=== PATIENT | male | born 1985 | race Caucasian/White ===

== ENCOUNTER 2019-01-14 19:16 | Emergency (ER) | payer OTHER, MEDICAID, SELFPAY ==
[2019-01-14 19:30] VITALS: BP 152/92; PULSE 111; RESP 14; TEMP 37; O2SAT 97
--- NOTE | 2019-01-14 19:30 | ED.SYNCOPE ---
HPI - Syncope General Chief Complaint: Abdominal Pain Stated Complaint: Syncope/ Abd Pain Time Seen by Provider: 01/14/19 19:28 Source: patient Mode of arrival: EMS Limitations: no limitations History of Present Illness HPI narrative: Patient is a 33-year-old male brought in by EMS after he had what appeared to be a syncopal episode at home. Upon my evaluation patient reported that he had no symptoms. He stated that he has had issue with constipation in the past. He states that he felt like he is currently constipated. States that his last bowel movement was a couple days ago. He states that prior to that he had some dark brown stool. He denied that there was any blood in it denies any black colored stool. He stated that earlier today he started having some abdominal pain. He was not straining on the toilet when this happened. He stated that he suddenly became very lightheaded and went into the bathroom where his was where apparently he had a syncopal event. There was no loss of bowel or bladder. The stated that he did hit his head however the patient was unsure about this. He denies any neck pain or headache. he stated that prior to the event other than the abdominal pain he had no other symptoms. There was no reported seizure-like activity. No reported postictal period. Related Data Allergies Allergy/AdvReac Type Severity Reaction Status Date / Time haloperidol Allergy Verified 01/14/19 19:38 Review of Systems Constitutional Denies fever(s), Denies frequent falls and Denies headache(s) ENT Ears, Nose, Mouth, and Throat: Denies headache(s) and Denies disequilibrium Cardiovascular Denies chest pain, Reports syncope and Denies dyspnea Respiratory Denies cough and Denies dyspnea Gastrointestinal Gastrointestinal: Reports abdominal pain, Reports constipation, Denies nausea and Denies vomiting Genitourinary Denies dysuria Musculoskeletal Denies myalgias and Denies arthralgias Integumentary/Breasts Denies rash Neurologic Denies confusion, Reports syncope, Denies frequent falls, Denies headache(s) and Denies disequilibrium Psychiatric Denies confusion Hematologic/Lymphatic Denies easy bleeding and Denies easy bruising Allergic/Immunologic Denies urticaria [facility] Medical History Constipation (Acute) Social History Smoking Status: Former smoker Social History Smoking Status: Former smoker Exam Initial Vital Signs Initial Vital Signs: Vital Signs Temperature 98.6 F 01/14/19 19:30 Pulse Rate 111 H 01/14/19 19:30 Respiratory Rate 14 01/14/19 19:30 Blood Pressure 152/92 H 01/14/19 19:30 Pulse Oximetry 97 01/14/19 19:30 Const General: cooperative, healthy appearing, comfortable, well developed, well groomed and No acute distress Orientation: alert, awake and oriented x3 HENMT Head: normal to inspection, normocephalic, atraumatic and No abrasion Chest Chest: No tenderness Resp Effort & Inspection: normal respiratory effort Auscultation: clear to auscultation bilaterally Cardio Rate: regular rate Rhythm: regular rhythm Pulses: radial pulses present GI Inspection: non-distended Palpation: soft, No firm and No tender Back/Spine/Pelvis Cervical Spine: No cervical spinal tenderness and No step off deformity Thoracic/Lumbar Spine: No thoracic spinal tenderness and No lumbar spinal tenderness Skin Lesions: no lesions Rashes: no rashes Neuro General: alert, awake and oriented x3 Cognition: normal cognition Speech: speech normal Gait: normal gait Motor: muscle tone normal throughout Sensory Exam: no sensory deficits noted Extrem General: normal to inspection and capillary refill normal Psych Appearance: grossly normal and well kempt Scores GCS Cassy coma scale eye opening: Spontaneous Cassy coma scale verbal response: Orientated Cassy coma scale motor response: Obey commands [place] coma scale total score: 15 Nexus Score for C-Spine Focal Neurologic deficit present: No Midline spinal tenderness present: No Altered level of conciousness present: No Intoxication present: No Distracting Injury Present: No Nexus Criteria for C-spine: 0 Course Orders Ordered: ED Orders 01/14/19 19:25 EKG-12 Lead Stat 01/14/19 20:00 Venous Blood Gas Stat 01/14/19 20:09 Complete Blood Count AUTO DIFF Stat Comprehensive Metabolic Panel Stat Ketones (Beta-Hydroxybutyrate) Stat Lactate (Lactic Acid) Stat Magnesium Stat Phosphorous Stat Procalcitonin Stat Prothrombin Time INR Stat Thyroid Stimulating Hormone Stat Troponin & CK Cardiac Panel Stat Discontinued Medications Sodium Chloride (Normal Saline 0.9%) 1,000 mls @ 1,000 mls/hr IV BOLUS ONE Stop: 01/14/19 20:23 Last Infusion: 01/14/19 22:22 Dose: 0 mls/hr Admin: 01/14/19 20:17 Dose: 1,000 mls/hr Vital Signs - 8 hr 01/14/19 20:36 01/14/19 21:11 01/14/19 22:00 Pulse Rate 97 H 93 H 85 Respiratory Rate 13 18 18 Blood Pressure [Left Arm] 130/82 124/63 96/59 L Pulse Oximetry 100 99 98 MDM - Syncope Lab Data Attestation: I reviewed the patient's lab results. Result diagrams: 01/14/19 20:09 01/14/19 20:09 Lab Results 01/14/19 01/14/19 01/14/19 Range/Units 20:00 20:09 20:09 WBC 12.3 H (4.5-11.0) X10^3/uL RBC 4.60 (4.5-5.9) X10^6/uL Hgb 14.0 (13.5-17.5) g/dL Hct 42.6 (41-53) % MCV 92.6 (80-100) fL MCH 30.4 (26-34) PG MCHC 32.8 (30-36) % RDW 12.9 (11.6-14.8) % Plt Count 255 (150-400) X10^3/uL Neut % (Auto) 77.3 H (50-75) % Lymph % (Auto) 15.7 L (25-40) % [place] % (Auto) 6.7 (3-14) % Eos % (Auto) 0.1 L (2-4) % Baso % (Auto) 0.2 (0-2) % Neut # (Auto) 9500 H (1902-0696) /uL Lymph # (Auto) 1900 (9765-7632) /uL [place] # (Auto) 800 (0-900) /uL Eos # (Auto) 0 (0-450) /uL Baso # (Auto) 0 (0-100) /uL PT (10.1-12.7) SECONDS INR (0.9-1.3) VBG pH 7.42 (7.33-7.43) VBG pCO2 35.8 L (45-50) mmHg VBG pO2 57 H (35-45) mmHg VBG HCO3 23 (23-28) mmol/L VBG Total CO2 24 (24-29) mmol/L VBG O2 Saturation 90 H (70-75) % VBG Base Excess -1.0 L (0-4) mmol/L Sodium 142 (137-145) mmol/L Potassium 3.7 (3.4-5.1) mmol/L Chloride 106 (98-107) mmol/L Carbon Dioxide 24 (22-32) mmol/L BUN 13 (9-20) mg/dL Creatinine 0.80 (0.66-1.25) mg/dL Estimated GFR > 60.0 (>60) mL/min BUN/Creatinine Ratio 16.3 (6-22) Glucose 123 H (70-100) mg/dL Lactate (0.7-2.1) mmol/L Calcium 9.6 (8.4-10.2) mg/dL Phosphorus (2.5-4.5) mg/dL Magnesium (1.6-2.3) mg/dL Total Bilirubin 0.9 (0.2-1.3) mg/dL AST 29 (17-59) IU/L ALT 31 (21-72) IU/L Alkaline Phosphatase 71 (38-126) U/L Total Creatine Kinase 193 H (55-170) U/L CK-MB (CK-2) 2.05 (<2.37) ng/mL CK-MB (CK-2) Rel Index 1.1 L (1.5-5.0) % Troponin I < 0.012 (0.01-0.034) ng/mL Total Protein 7.9 (6.3-8.2) g/dL Albumin 4.7 (3.5-5.0) g/dL Globulin 3.2 (1.7-4.1) g/dL Albumin/Globulin Ratio 1.5 (1.0-2.8) Procalcitonin (<0.5) ng/mL TSH (0.47-4.68) uIU/mL Ketones (<0.27) mmol/L 01/14/19 01/14/19 01/14/19 Range/Units 20:09 20:09 20:09 WBC (4.5-11.0) X10^3/uL RBC (4.5-5.9) X10^6/uL Hgb (13.5-17.5) g/dL Hct (41-53) % MCV (80-100) fL MCH (26-34) PG MCHC (30-36) % RDW (11.6-14.8) % Plt Count (150-400) X10^3/uL Neut % (Auto) (50-75) % Lymph % (Auto) (25-40) % [place] % (Auto) (3-14) % Eos % (Auto) (2-4) % Baso % (Auto) (0-2) % Neut # (Auto) (3288-9485) /uL Lymph # (Auto) (6936-3233) /uL [place] # (Auto) (0-900) /uL Eos # (Auto) (0-450) /uL Baso # (Auto) (0-100) /uL PT 12.8 H (10.1-12.7) SECONDS INR 1.1 (0.9-1.3) VBG pH (7.33-7.43) VBG pCO2 (45-50) mmHg VBG pO2 (35-45) mmHg VBG HCO3 (23-28) mmol/L VBG Total CO2 (24-29) mmol/L VBG O2 Saturation (70-75) % VBG Base Excess (0-4) mmol/L Sodium (137-145) mmol/L Potassium (3.4-5.1) mmol/L Chloride (98-107) mmol/L Carbon Dioxide (22-32) mmol/L BUN (9-20) mg/dL Creatinine (0.66-1.25) mg/dL Estimated GFR (>60) mL/min BUN/Creatinine Ratio (6-22) Glucose (70-100) mg/dL Lactate 0.8 (0.7-2.1) mmol/L Calcium (8.4-10.2) mg/dL Phosphorus (2.5-4.5) mg/dL Magnesium (1.6-2.3) mg/dL Total Bilirubin (0.2-1.3) mg/dL AST (17-59) IU/L ALT (21-72) IU/L Alkaline Phosphatase (38-126) U/L Total Creatine Kinase (55-170) U/L CK-MB (CK-2) (<2.37) ng/mL CK-MB (CK-2) Rel Index (1.5-5.0) % Troponin I (0.01-0.034) ng/mL Total Protein (6.3-8.2) g/dL Albumin (3.5-5.0) g/dL Globulin (1.7-4.1) g/dL Albumin/Globulin Ratio (1.0-2.8) Procalcitonin < 0.05 (<0.5) ng/mL TSH (0.47-4.68) uIU/mL Ketones (<0.27) mmol/L 01/14/19 01/14/19 Range/Units 20:09 20:09 WBC (4.5-11.0) X10^3/uL RBC (4.5-5.9) X10^6/uL Hgb (13.5-17.5) g/dL Hct (41-53) % MCV (80-100) fL MCH (26-34) PG MCHC (30-36) % RDW (11.6-14.8) % Plt Count (150-400) X10^3/uL Neut % (Auto) (50-75) % Lymph % (Auto) (25-40) % [place] % (Auto) (3-14) % Eos % (Auto) (2-4) % Baso % (Auto) (0-2) % Neut # (Auto) (7821-9401) /uL Lymph # (Auto) (2711-5351) /uL [place] # (Auto) (0-900) /uL Eos # (Auto) (0-450) /uL Baso # (Auto) (0-100) /uL PT (10.1-12.7) SECONDS INR (0.9-1.3) VBG pH (7.33-7.43) VBG pCO2 (45-50) mmHg VBG pO2 (35-45) mmHg VBG HCO3 (23-28) mmol/L VBG Total CO2 (24-29) mmol/L VBG O2 Saturation (70-75) % VBG Base Excess (0-4) mmol/L Sodium (137-145) mmol/L Potassium (3.4-5.1) mmol/L Chloride (98-107) mmol/L Carbon Dioxide (22-32) mmol/L BUN (9-20) mg/dL Creatinine (0.66-1.25) mg/dL Estimated GFR (>60) mL/min BUN/Creatinine Ratio (6-22) Glucose (70-100) mg/dL Lactate (0.7-2.1) mmol/L Calcium (8.4-10.2) mg/dL Phosphorus 2.7 (2.5-4.5) mg/dL Magnesium 1.8 (1.6-2.3) mg/dL Total Bilirubin (0.2-1.3) mg/dL AST (17-59) IU/L ALT (21-72) IU/L Alkaline Phosphatase (38-126) U/L Total Creatine Kinase (55-170) U/L CK-MB (CK-2) (<2.37) ng/mL CK-MB (CK-2) Rel Index (1.5-5.0) % Troponin I (0.01-0.034) ng/mL Total Protein (6.3-8.2) g/dL Albumin (3.5-5.0) g/dL Globulin (1.7-4.1) g/dL Albumin/Globulin Ratio (1.0-2.8) Procalcitonin (<0.5) ng/mL TSH 1.14 (0.47-4.68) uIU/mL Ketones 0.08 (<0.27) mmol/L Urine Dip Bedside Urine Glucose Negative Bedside Urine Bilirubin - Negative Bedside Urine Ketone - Negative Urine Specific [place] 1.020 Bedside Urine Occult Blood - Negative Bedside Urine pH 6.0 Bedside Urine Protein - Negative Bedside Urine Urobilinogen - Negative Bedside Urine Nitrite - Negative Bedside Urine Leukocytes - Negative Esterase ECG Data Attestation: I personally reviewed and interpreted this ECG as follows: Prior ECG tracings: not available for review Interpretation: Sinus rhythm Ventricular rate of 93 Normal axis Normal QRS Normal QTC No ST T wave changes MDM Narrative Medical decision making narrative: On arrival patient was tachycardic 10/18/2010 however this resolved. He was no longer tachycardic on his EKG. He was not having any chest pain or shortness of breath. I have low suspicion for PE. There was no indication that this was seizure-like activity. There was some report that the patient hit his head when he fell however he has no external signs of any trauma. He is alert oriented x3. His cervical spine was cleared by nexus criteria. Will hold on head CT or cervical spine CT for now. Upon my evaluation the patient had no symptoms. Had no abdominal pain. was initially reported that his blood glucose by EMS was 250. He has never had any diagnosis of diabetes. He is not in DKA. PH is 7.4 on his VBG. His glucose was 123 on his chemistries here in the emergency department. Upon further questioning of the patient and his it does appear that this was a vasovagal reaction most likely to his abdominal pain. I have low concern for AAA. Given his lack of abdominal pain will hold on a CT scan. He has benign abdominal exam. Low suspicion for obstruction. Patient was asking to go home. We did discuss the use of laxatives and stool softeners. He was given return precautions. He is given a phone number to call to help with stab wishing a primary provider. Both he and his expressed understanding and agreement plan. Discharge Plan Departure Patient Disposition: Home Clinical Impression: Abdominal pain Qualifiers: Abdominal location: generalized Qualified Code(s): R10.84 - Generalized abdominal pain Syncope Qualifiers: Syncope type: unspecified Qualified Code(s): R55 - Syncope and collapse Discharge Date/Time: 01/14/19 22:19 Interventions: ED Discharge Assessment Last Done: 01/14/19 22:22 Instructions: Constipation (Alternative Therapy), Constipation Activity Restrictions/Additional Instructions: Recommend that you do make contact with the primary care provider for follow-up. You can take laxatives for any constipation issues. Return to the emergency department for any new or worsening symptoms. you can call 360 help with stab wishing a primary provider
[2019-01-14] MEDS: SODIUM CHLORIDE 0.9% 1,000 ML 1000 ML IV (20:17)
[2019-01-14 20:19] LABS: Add Manual Diff / Slide Review NO; Basophils Absolute Auto 0 /uL (0-100); Basophils Percent Auto 0.2 % (0-2); Eosinophils Absolute Auto 0 /uL (0-450); Eosinophils Percent Auto 0.1 % (2-4); Hematocrit 42.6 % (41-53); Lymphocytes Absolute Auto 1900 /uL (1100-4500); Lymphocytes Percent Auto 15.7 % (25-40); Mean Corpuscular HGB Conc 32.8 % (30-36); Mean Corpuscular Hemoglobin 30.4 PG (26-34); Mean Corpuscular Volume 92.6 fL (80-100); Monocytes Absolute Auto 800 /uL (0-900); Monocytes Percent Auto 6.7 % (3-14); Neutrophils Absolute Auto 9500 /uL (1500-7000); Neutrophils Percent Auto 77.3 % (50-75); Platelet Count 255 X10^3/uL (150-400); Red Cell Distribution Width 12.9 % (11.6-14.8); White Blood Cell Count 12.3 X10^3/uL (4.5-11.0)
[2019-01-14 20:19] LABS: HCO3 VBG 23 mmol/L (23-28); Oxygen Saturation VBG 90 % (70-75); PCO2 VBG 35.8 mmHg (45-50); PO2 VBG 57 mmHg (35-45); Total CO2 VBG 24 mmol/L (24-29); pH VBG 7.42 (7.33-7.43)
[2019-01-14 20:26] LABS: INR 1.1 (0.9-1.3); Prothrombin Time 12.8 SECONDS (10.1-12.7)
[2019-01-14 20:33] LABS: Alanine Aminotransferase 31 IU/L (21-72); Albumin 4.7 g/dL (3.5-5.0); Albumin Globulin Ratio 1.5 (1.0-2.8); Alkaline Phosphatase 71 U/L (38-126); Aspartate Aminotransferase 29 IU/L (17-59); BUN Creatinine Ratio 16.3 (6-22); Bilirubin Total 0.9 mg/dL (0.2-1.3); Blood Urea Nitrogen 13 mg/dL (9-20); Calcium 9.6 mg/dL (8.4-10.2); Carbon Dioxide 24 mmol/L (22-32); Chloride 106 mmol/L (98-107); Creatine Kinase 193 U/L (55-170); Estimated Glomerular Filt Rate > 60.0 mL/min (>60); Globulin 3.2 g/dL (1.7-4.1); Glucose 123 mg/dL (70-100); HEMOLYSIS 15 (0-50); Potassium 3.7 mmol/L (3.4-5.1); Sodium 142 mmol/L (137-145); Total Protein 7.9 g/dL (6.3-8.2)
[2019-01-14 20:34] LABS: Lactate (Lactic Acid) 0.8 mmol/L (0.7-2.1)
[2019-01-14 20:35] LABS: Magnesium 1.8 mg/dL (1.6-2.3); Phosphorous 2.7 mg/dL (2.5-4.5)
[2019-01-14 20:36] VITALS: BP 130/82; PULSE 97; RESP 13; O2SAT 100
[2019-01-14 20:38] LABS: Ketones (Beta-Hydroxybutyrate) 0.08 mmol/L (<0.27)
[2019-01-14 20:44] LABS: Troponin I < 0.012 ng/mL (0.01-0.034)
[2019-01-14 20:49] LABS: CKMB % Relative Index 1.1 % (1.5-5.0); Creatine Kinase MB 2.05 ng/mL (<2.37)
[2019-01-14 20:57] LABS: Procalcitonin < 0.05 ng/mL (<0.5)
[2019-01-14 21:11] VITALS: BP 124/63; PULSE 93; RESP 18; O2SAT 99
[2019-01-14 21:25] LABS: Thyroid Stimulating Hormone 1.14 uIU/mL (0.47-4.68)
[2019-01-14 22:00] VITALS: BP 96/59; PULSE 85; RESP 18; O2SAT 98
== END 2019-01-14 22:19 | disposition home or self-care (01) ==
PROVIDERS: Nurse Practitioner Family; Emergency Provider Emergency Medicine
DX: R10.84 Generalized abdominal pain (principal); R55 Syncope and collapse; K59.00 Constipation, unspecified; R00.0 Tachycardia, unspecified
CPT/HCPCS: 36591; 80053; 81003; 82009; 82550; 82553; 82805; 83605; 83735; 84100; 84145; 84443; 84484; 85025; 85610; 93005; 96360; 96361; 99283; 99284